=== PATIENT | male | born 1990 | race Caucasian/White ===

== ENCOUNTER 2019-08-16 16:43 | Emergency (ER) | payer OTHER, SELFPAY ==
--- NOTE | ~2019-08-16 | XR_ITS ---
EXAMINATION: XR wrist RT min 3V EXAM DATE: 08/16/2019 17:18 INDICATION: Initial encounter following injury, with pain of the right wrist. TECHNIQUE: Right wrist frontal, frontal with ulnar deviation, oblique and lateral projections obtain ed and reviewed. There is no prior study for comparison. FINDINGS: Right wrist scapholunate joint space is maintained. There are no acute fractures or disloca tions identified. There is no subcutaneous gas. The soft tissue is unremarkable. There are no rad iopaque foreign bodies. IMPRESSION: No acute osseous findings. Reviewed, dictated and finalized at location [facility] IMPRESSION: No acute osseous findings.
--- NOTE | 2019-08-16 16:55 | ED.UPPEXIN ---
HPI - Extremity Injury (Upper) General Chief Complaint: Extremity Injury, Upper Stated Complaint: wrist pain r hand Time Seen by Provider: 08/16/19 16:55 Source: patient and RN notes reviewed Mode of arrival: ambulatory Limitations: no limitations History of Present Illness HPI narrative: 28-year-old male says that he was walking in the y[place] at home tripped over a tire hyperflexing his right hand. [place] and heard a pop. Wanted to get it evaluated. 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 complaint: injury to: right and wrist Onset (ago): hour(s) (2) Other injuries: none Handedness: right Place: home Severity: moderate Relieving factors: none Exacerbating factors: movement of extremity Context: fall Associated symptoms: heard/felt popping sensation Related Data Home Medications Medication Instructions Recorded Confirmed No Home Medications 08/16/19 08/16/19 Allergies Allergy/AdvReac Type Severity Reaction Status Date / Time No Known Allergies Allergy Verified 08/16/19 17:10 Review of Systems Review of Systems: All systems reviewed & are unremarkable except as noted in HPI and below PMFSH Past Medical History Medical History (Updated 08/16/19 @ 17:27 by Fabio Santiago MD) No active medical problems Surgical History Surgical History (Updated 08/16/19 @ 17:03 by Fabio Santiago MD) No history of previous surgery Social History Social History (Updated 08/16/19 @ 17:04 by Fabio Santiago MD) Smoking status: Current every day smoker Tobacco type: cigarettes Alcohol intake: current Alcohol use details: Occasional Substance use: current Substance use type: marijuana Other substance usage details: occasional Exam Const: General: healthy appearing, no acute distress and alert Nutritional Appearance: well nourished Orientation/consciousness: patient oriented x3 HENMT: Head: normal to inspection Ears: external ears normal General nose exam: Normal external nose present Face and sinus: normal facial exam Mouth: Yes moist mucous membranes Eyes: Conjunctivae: conjunctivae normal Pupils: Equal, round and reactive pupils present EOM: EOMs intact bilaterally Neck: Neck: normal visual inspection Chest: Chest palpation & inspection: normal inspection of the chest Resp: Effort & Inspection: normal respiratory effort Auscultation: clear to auscultation bilaterally Cardio: Rate: regular rate Rhythm: regular rhythm GI: GI Palp: Yes Soft to palpation and No Tenderness to palpation present (GI) Auscultation: normal bowel sounds Back/Spine/Pelvis: Cervical Spine: cervical ROM normal Thoracic/Lumbar Spine: thoraco-lumbar ROM normal Skin: General skin exam: normal color Rashes: no rashes Neuro: General: patient oriented x3 and no focal motor deficits Speech: normal speech Gait exam (Neuro): Normal gait present Extrem: General: no clubbing, cyanosis or edema Right upper extremity: wrist tenderness of the distal radius, normal ROM and normal vascular exam; no swelling, ROM normal and no lacerations Psych: Appearance: grossly normal and well kempt Mental Status: mental status grossly normal Affect: normal affect Attitude: cooperative Thought content: Yes Normal thought content present Course Vital Signs Vital signs: Vital Signs Temperature 36.3 C L 08/16/19 16:57 Pulse Rate 109 H 08/16/19 16:57 Respiratory Rate 16 08/16/19 16:57 Blood Pressure 136/90 08/16/19 16:57 Pulse Oximetry 95 08/16/19 16:57 Temperature 36.3 C L 08/16/19 16:57 Pulse Rate 109 H 08/16/19 16:57 Respiratory Rate 16 08/16/19 16:57 Blood Pressure 136/90 08/16/19 16:57 Pulse Oximetry 95 08/16/19 16:57 Discharge Plan Discharge Clinical Impression: Sprain and strain of wrist Patient Disposition: Home, Self-Care Condition: Stable Instructions: Wrist Sprain (ED) Additional Instructions: Use Tylenol or Motrin as needed. Ice elevate. Follow-up w
[2019-08-16 16:57] VITALS: BP 136/90; PULSE 109; RESP 16; TEMP 36.3; O2SAT 95
== END 2019-08-16 17:37 | disposition home or self-care (01) ==
PROVIDERS: Emergency Provider Emergency Medicine; PCP Internal Medicine
DX: S63.501A Unspecified sprain of right wrist, initial encounter (principal); W22.8XXA Striking against or struck by other objects, initial encounter
CPT/HCPCS: 29125; 73110; 99282; 99283

== ENCOUNTER 2021-12-03 21:05 | Emergency (ER) | payer OTHER, SELFPAY ==
[2021-12-03 21:10] VITALS: BP 146/77; PULSE 95; RESP 18; TEMP 36.9; O2SAT 97
--- NOTE | 2021-12-03 21:23 | ED.DIZZY ---
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 MD elicited complaint: dizziness and lightheadedness Onset (ago): hour(s) Severity: mild Related Data Home Medications Medication Instructions Recorded Confirmed No Home Medications 08/16/19 12/03/21 Allergies Allergy/AdvReac Type Severity Reaction Status Date / Time No Known Allergies Allergy Verified 08/16/19 17:10 Review of Systems Review of Systems: All systems reviewed & are unremarkable except as noted in HPI and below PMFSH Past Medical History Medical History No active medical problems Surgical History Surgical History No history of previous surgery Social History Social History Smoking status: Current every day smoker Tobacco type: cigarettes Alcohol intake: current Alcohol use details: Occasional Substance use: current Substance use type: marijuana Other substance usage details: occasional Exam Const: General: healthy appearing and no acute distress HENMT: Head: normal to inspection Eyes: Conjunctivae: conjunctivae normal Pupils: Equal, round and reactive pupils present Direct Ophthalmoscopy: no photophobia Neck: Neck: normal visual inspection, no lymphadenopathy and no meningeal signs Chest: Chest palpation & inspection: normal inspection of the chest Resp: Effort & Inspection: normal respiratory effort Cardio: Rate: regular rate Rhythm: regular rhythm GI: Auscultation: normal bowel sounds : General: Yes bladder normal to palpation Skin: General skin exam: normal color Rashes: no rashes Wounds: no wounds Neuro: General: patient oriented x3, moves all extremities, no meningeal signs and no focal motor deficits Psych: Mental Status: mental status grossly normal Affect: normal affect Course Course Emergency Course: Patient declined any blood work or EKG, states that he is doing well and just wanted to be checked out otherwise doing well. Critical Care Time Critical Care Time Critical Care Time: No Discharge Plan Discharge Clinical Impression: Light-headedness Patient Disposition: Home, Self-Care Condition: Stable Instructions: Antibiotic Form, Lightheadedness (ED) Additional Instructions: advised to follow-up with primary care physician or if symptoms persist or worsen can come back to the emergency room. Prescriptions: No Action No Home Medications Follow-up/Referrals: Calin Rahman MD [Primary Care Provider] - Time of Disposition: 21:26
[2021-12-03 21:29] VITALS: BP 138/74; PULSE 85; RESP 18; O2SAT 98
== END 2021-12-03 21:30 | disposition home or self-care (01) ==
PROVIDERS: Emergency Provider Emergency Medicine; PCP Internal Medicine
DX: R42 Dizziness and giddiness (principal)
CPT/HCPCS: 99283

== ENCOUNTER 2022-05-22 09:14 | Emergency (ER) | payer OTHER, SELFPAY ==
[2022-05-22 09:17] VITALS: BP 137/97; PULSE 89; RESP 18; TEMP 36.6; O2SAT 98
[2022-05-22] MEDS: SODIUM CHLORIDE 0.9% IV 1,000 ML 999 ML IV CONT (09:40)
[2022-05-22 09:44] LABS: Hematocrit 48.3 % (40.0-54.0); Hemoglobin 16.2 g/dL (14.0-18.0); Mean Corpuscular HGB Conc 33.5 g/dL (32.0-36.0); Mean Corpuscular Hemoglobin 30.2 pg (27.0-31.0); Mean Corpuscular Volume 89.9 fL (78.0-102.0); Mean Platelet Volume 9.9 fl (8.7-11.0); Platelet Count Result 233 K/mm3 (150-420); Red Blood Count 5.37 M/mm3 (4.70-6.10); Red Cell Distribution Width 12.6 % (11.6-14.4); White Blood Count 6.7 K/mm3 (4.8-10.8)
--- NOTE | 2022-05-22 09:56 | ED.GENADULT ---
HPI - General Adult General Chief complaint: Upper Respiratory Infection Stated complaint: vomiting, nausea, clammy Time Seen by Provider: 05/22/22 09:21 Source: patient Mode of arrival: ambulatory Limitations: no limitations History of Present Illness HPI narrative: this is a 31-year-old gentleman with no significant past medical history presents with a 2 day history of nausea and episode of vomiting with diarrhea currently no crampy abdominal pain patient states that he has felt clammy with chills with no fevers no shortness of breath no chest pain no cough or congestion no nasal discharge. Onset (ago): day(s) Severity: mild Related Data Allergies Allergy/AdvReac Type Severity Reaction Status Date / Time No Known Allergies Allergy Verified 05/22/22 09:44 Review of Systems Review of Systems: All systems reviewed & are unremarkable except as noted in HPI and below PMFSH Past Medical History Medical History No active medical problems Surgical History Surgical History No history of previous surgery Social History Social History Smoking status: Current every day smoker Tobacco type: cigarettes Alcohol intake: current Alcohol use details: Occasional Substance use: current Substance use type: marijuana Other substance usage details: occasional Exam Const: General: healthy appearing and no acute distress Nutritional Appearance: well nourished Limitations: no limitations HENMT: Head: normal to inspection Ears: external ears normal Face/Nose/Sinus: Normal external nose present Eyes: Conjunctivae: conjunctivae normal Pupils: Equal, round and reactive pupils present EOM: EOMs intact bilaterally Direct Ophthalmoscopy: no photophobia Neck: Neck: normal visual inspection Chest: Chest palpation & inspection: normal inspection of the chest Resp: Effort & Inspection: normal respiratory effort Auscultation: clear to auscultation bilaterally Cardio: Rate: regular rate Rhythm: regular rhythm GI: GI Palp: Yes Soft to palpation Auscultation: normal bowel sounds : General: Yes bladder normal to palpation Back/Spine/Pelvis: Back: no CVA tenderness Skin: General skin exam: normal color Rashes: no rashes Wounds: no wounds Neuro: General: patient oriented x3, moves all extremities, no meningeal signs and no focal motor deficits Extrem: General: normal to inspection and no clubbing, cyanosis or edema Psych: Mental Status: mental status grossly normal Affect: normal affect Course Course Emergency Course: Patient currently denies any nausea or vomiting, and received IV fluids and labs and viral screens reviewed with patient Vital Signs Vital signs: Vital Signs Temperature 36.6 C 05/22/22 09:17 Pulse Rate 89 05/22/22 09:17 Respiratory Rate 18 05/22/22 09:17 Blood Pressure 137/97 H 05/22/22 09:17 Pulse Oximetry 98 05/22/22 09:17 Oxygen Delivery Room Air 05/22/22 09:17 Temperature 36.6 C 05/22/22 09:17 Pulse Rate 89 05/22/22 09:17 Respiratory Rate 18 05/22/22 09:17 Blood Pressure 137/97 H 05/22/22 09:17 Pulse Oximetry 98 05/22/22 09:17 Oxygen Delivery Room Air 05/22/22 09:17 Medical Decision Making Vital Signs Vital Signs: Vital Signs Temperature 36.6 C 05/22/22 09:17 Pulse Rate 89 05/22/22 09:17 Respiratory Rate 18 05/22/22 09:17 Blood Pressure 137/97 H 05/22/22 09:17 Pulse Oximetry 98 05/22/22 09:17 Oxygen Delivery Room Air 05/22/22 09:17 Temperature 36.6 C 05/22/22 09:17 Pulse Rate 89 05/22/22 09:17 Respiratory Rate 18 05/22/22 09:17 Blood Pressure 137/97 H 05/22/22 09:17 Pulse Oximetry 98 05/22/22 09:17 Oxygen Delivery Room Air 05/22/22 09:17 Lab Data 05/22/22 09:40 05/22/22 09:40 Labs:
[2022-05-22 09:58] LABS: Alanine Aminotransferase 28 U/L (16-63); Albumin Level 4.3 g/dL (3.4-5.0); Alkaline Phosphatase 65 U/L (46-116); Anion Gap 15 mmol/L (8-16); Aspartate Amino Transferase 19 U/L (15-37); Bilirubin,Total 0.3 mg/dL (0.00-1.00); Blood Urea Nitrogen 30 mg/dL (7-18); Calcium 9.1 mg/dL (8.5-10.1); Carbon Dioxide 24 mmol/L (21-32); Chloride 98 mmol/L (98-108); Estimated CRCL calculation 104 ml/min; Estimated Glomerular Filt Rate > 60; Glucose 90 mg/dL (70-99); Osmolality Calculated 290 mOsm/kg (285-295); Potassium 3.3 mmol/L (3.5-5.1); Sodium 137 mmol/L (136-145); Total Protein 8.8 g/dL (6.4-8.2)
[2022-05-22 10:04] LABS: Band Neutrophils Percent 0 % (0-6); Basophils Percent Manual 0 % (0-1); Eosinophils Percent Manual 0 % (1-6); Lymphocytes Absolute Manual 1.27 K/mm3 (1.1-4.5); Lymphocytes Percent Manual 19 % (18-44); Monocytes Percent Manual 21 % (3-9); Neutrophils Absolute Manual 4.02 K/mm3 (1.3-6.7); Neutrophils Percent Manual 60 % (46-73); Platelet Estimate Adequate (Adequate); Total Cells Counted 100
[2022-05-22 10:09] LABS: Influenza A QL RT-PCR Positive (Negative); Influenza B QL RT-PCR Negative (Negative); SARS-CoV-2 RNA PCR Negative (Negative)
[2022-05-22 10:11] LABS: RSV RNA, RT-PCR Negative (Negative)
[2022-05-22 10:40] VITALS: BP 137/82; PULSE 80; RESP 16; TEMP 36.4; O2SAT 97
== END 2022-05-22 10:43 | disposition home or self-care (01) ==
PROVIDERS: Emergency Provider Emergency Medicine; PCP Internal Medicine
DX: K52.9 Noninfective gastroenteritis and colitis, unspecified (principal); Z20.822 Contact with and (suspected) exposure to COVID-19
CPT/HCPCS: 80053; 85025; 87637; 96360; 99283; J7030

== ENCOUNTER 2023-12-27 09:21 | Emergency (ER) | payer SELFPAY ==
[2023-12-27 09:21] VITALS: BP 154/73; PULSE 91; RESP 18; TEMP 36.3; O2SAT 94
[2023-12-27 09:29] VITALS: O2SAT 100
[2023-12-27 10:08] LABS: Influenza A QL RT-PCR Negative (Negative); Influenza B QL RT-PCR Negative (Negative); RSV RNA, RT-PCR Negative (Negative); SARS-CoV-2 RNA PCR Negative (Negative)
--- NOTE | 2023-12-27 10:28 | ED.URI ---
HPI - URI/Sore Throat General Chief Complaint: Upper Respiratory Infection Stated Complaint: viral symptoms Time Seen by Provider: 12/27/23 09:51 Source: patient Mode of arrival: ambulatory History of Present Illness HPI Narrative: patient is a 33-year-old male with a significant past medical history presents today with URI symptoms. Patient had a coughing congestion, also has diarrhea nausea he has had this for last 3 days. He denies any sick contacts or fevers. He has not taken home COVID test together. he states he also has some minor abdominal pain. He denies any sick contacts. MD elicited complaint: cough, rhinorrhea and nasal congestion Onset (ago): day(s) Consistency: constant Severity: mild Description of mucous: clear Able to tolerate fluids by mouth: Yes Associated symptoms: diaphoresis, headache and abdominal pain Treatments prior to arrival: none Related Data Allergies Allergy/AdvReac Type Severity Reaction Status Date / Time No Known Allergies Allergy Verified 12/27/23 09:31 Review of Systems Review of Systems: All systems reviewed & are unremarkable except as noted in HPI and below Constitutional: Constitutional: Reports as per HPI Eyes: Eyes: Reports as per HPI ENT: Reports as per HPI, Reports nasal congestion and Reports sore throat Cardiovascular: Cardiovascular: Reports no additional cardiovascular complaints Respiratory: Respiratory: Reports as per HPI Gastrointestinal: Gastrointestinal: Reports as per HPI and Reports diarrhea Genitourinary: Genitourinary: Reports no additional male genitourinary complaints Musculoskeletal: Musculoskeletal: Reports no additional musculoskeletal complaints Integumentary/Breasts: Skin/Breast: Reports system reviewed and no additional complaints, except as docu Neurologic: Reports system reviewed and no additional complaints, except as documented Psychiatric: Psychiatric: Reports no additional psychiatric complaints Endocrine: Endocrine: Reports no additional endocrine complaints Hematologic/Lymphatic: Hematologic/Lymphatic: Reports no additional hematologic/lymphatic complaints Allergic/Immunologic: Allergic/Immunologic: Reports no additional allergic/immunologic complaints PMFSH Past Medical History Medical History No active medical problems Surgical History Surgical History No history of previous surgery Social History Social History Smoking status: Current every day smoker Tobacco type: cigarettes Alcohol intake: current Alcohol use details: Occasional Substance use: current Substance use type: marijuana Other substance usage details: occasional Course Vital Signs Vital signs: Vital Signs Temperature 97.4 F L 12/27/23 09:21 Pulse Rate 91 12/27/23 09:21 Respiratory Rate 18 12/27/23 09:21 Blood Pressure 154/73 H 12/27/23 09:21 Pulse Oximetry 94 12/27/23 09:21 Oxygen Delivery Room Air 12/27/23 09:21 Temperature 97.4 F L 12/27/23 09:21 Pulse Rate 91 12/27/23 09:21 Respiratory Rate 18 12/27/23 09:21 Blood Pressure 154/73 H 12/27/23 09:21 Pulse Oximetry 100 12/27/23 09:29 Oxygen Delivery Room Air 12/27/23 09:29 MDM - URI/Sore Throat MDM Narrative Medical decision making narrative: Patient most likely has an upper respiratory infection and symptoms gastroenteritis as well. Will do COVID and flu swabs on and base treatment on that. It does not seem to be too severe however he is sitting comfortably. Differential Diagnosis Differential diagnosis: Likely upper respiratory infection Medical Records Attestation: I reviewed the patient's medical records. Lab Data Attestation: I reviewed the patient's lab results. Labs: Lab Results 12/27/23 Range/Units 09:24 Influenza A (RT-PCR) Negative (Negative)
[2023-12-27 10:46] VITALS: BP 128/89; PULSE 83; RESP 17; TEMP 36.4; O2SAT 97
== END 2023-12-27 10:46 | disposition home or self-care (01) ==
PROVIDERS: Emergency Provider Family Medicine; PCP Internal Medicine
DX: J06.9 Acute upper respiratory infection, unspecified (principal); K52.9 Noninfective gastroenteritis and colitis, unspecified; F17.210 Nicotine dependence, cigarettes, uncomplicated; Z20.822 Contact with and (suspected) exposure to COVID-19
CPT/HCPCS: 87637; 99283

== ENCOUNTER 2024-04-09 16:42 | Emergency (ER) | payer SELFPAY ==
[2024-04-09 16:42] VITALS: BP 164/106; PULSE 76; RESP 18; TEMP 36.9; O2SAT 99
--- NOTE | 2024-04-09 16:53 | ED.DENTAL ---
HPI - Dental/Oral General Chief complaint: Dental/Oral Stated complaint: dental pain Time Seen by Provider: 04/09/24 16:51 Source: patient History of Present Illness HPI Narrative: 33 YEARS OLD WHITE MALE CAME TO THE ED COMPLAINING OF RIGHT-SIDED LOWER DENTAL PAIN FOR THE LAST 4 DAYS. LAST TIME WAS SEEN BY A DENTIST YEARS AGO. HE DENIES ANY FEVER, CHILLS, HEADACHE, DIFFICULTY SWALLOWING OR BREATHING Related Data Allergies Allergy/AdvReac Type Severity Reaction Status Date / Time No Known Allergies Allergy Verified 12/27/23 09:31 Review of Systems Review of Systems: All systems reviewed & are unremarkable except as noted in HPI and below PMFSH Past Medical History Medical History No active medical problems Surgical History Surgical History No history of previous surgery Social History Social History Smoking status: Current every day smoker Tobacco type: cigarettes Alcohol intake: current Alcohol use details: Occasional Substance use: current Substance use type: marijuana Other substance usage details: occasional Exam Narrative: GENERAL APPEARANCE: WELL-DEVELOPED, WELL-NOURISHED SKIN: NORMAL COLOR HEAD: NORMOCEPHALIC, NONTRAUMATIC EYES: CLEAR CONJUNCTIVA ENT: OROPHARYNX NORMAL, EARS NORMAL, NOSE NORMAL, EXTENSIVE DENTAL DECAY MAINLY AT THE RIGHT LOWER TEETH NECK: SUPPLE, NONTENDER NEUROLOGIC: ALERT AND ORIENTED ?3, 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 TESTED, NO GROSS MOTOR DEFICIT Course Vital Signs Vital signs: Vital Signs Temperature 36.9 C 04/09/24 16:42 Pulse Rate 76 04/09/24 16:42 Respiratory Rate 18 04/09/24 16:42 Blood Pressure 164/106 H 04/09/24 16:42 Pulse Oximetry 99 04/09/24 16:42 Oxygen Delivery Room Air 04/09/24 16:42 Temperature 36.9 C 04/09/24 16:42 Pulse Rate 76 04/09/24 16:42 Respiratory Rate 18 04/09/24 16:42 Blood Pressure 164/106 H 04/09/24 16:42 Pulse Oximetry 99 04/09/24 16:42 Oxygen Delivery Room Air 04/09/24 16:42 MDM - Dental/Oral Differential Diagnosis Differential diagnosis: Likely dental caries, toothache and fracture of tooth Discharge Plan Discharge Clinical Impression: Dental caries Patient Disposition: Home, Self-Care Condition: Stable Instructions: Antibiotic Form, Toothache (ED) Additional Instructions: RETURN IF SYMPTOMS ARE WORSENING , CALL YOUR FAMILY PHYSICIAN FOR APPOINTMENT, TAKE TYLENOL NEEDED FOR ACHES AND PAIN, CONTINUE HOME MEDICATIONS. Prescriptions: New penicillin V potassium 500 mg tablet 500 mg PO Q6H Qty: 40 0RF ibuprofen [IBU] 800 mg tablet 800 mg PO TID Qty: 20 0RF Follow-up/Referrals: Calin Rahman MD [Primary Care Provider] - Stand Alone Forms: Work/School Release IP
== END 2024-04-09 17:10 | disposition home or self-care (01) ==
LOC: CHSED 17:05
PROVIDERS: Emergency Provider Emergency Medicine; PCP Internal Medicine
DX: K02.9 Dental caries, unspecified (principal); F17.210 Nicotine dependence, cigarettes, uncomplicated
CPT/HCPCS: 99283

== ENCOUNTER 2024-04-12 04:52 | Emergency (ER) | payer OTHER, SELFPAY ==
[2024-04-12 04:54] VITALS: BP 143/96; PULSE 89; RESP 18; TEMP 36.4; O2SAT 97
--- NOTE | 2024-04-12 05:04 | ED.EYEPROB ---
HPI - Eye Problem General Chief complaint: Eye Problems Stated complaint: allergic reaction Time Seen by Provider: 04/12/24 05:04 Source: patient Mode of arrival: ambulatory Limitations: no limitations History of Present Illness HPI Narrative: 33-year-old male smoker presented to the ED on 04/01/2024 for right lower dental pain and was prescribed amoxicillin. He presents to the ED with a 2 day history of -- left forehead vesicular rash which is not painful. the rash extends over the nose and the forehead -- erythema of the left eye. no eye pain. No photophobia. no vision changes. chief complaint: eye redness Onset (ago): day(s) ( One day) Onset description: sudden Duration: constant Location: left eye Related Data Allergies Allergy/AdvReac Type Severity Reaction Status Date / Time No Known Allergies Allergy Verified 12/27/23 09:31 Review of Systems Review of Systems: All systems reviewed & are unremarkable except as noted in HPI and below Eyes: Eyes: Reports as per HPI and Reports no additional eye complaints Comments: No eye pain/ vision changes/tearing/ photophobia PMFSH Past Medical History Medical History No active medical problems Surgical History Surgical History No history of previous surgery Social History Social History Smoking status: Current every day smoker Tobacco type: cigarettes Alcohol intake: current Alcohol use details: Occasional Substance use: current Substance use type: marijuana Other substance usage details: occasional Exam Const: General: no acute distress Orientation/consciousness: patient oriented x3 Limitations: no limitations HENMT: Head: normal to inspection Ears: external ears normal Face/Nose/Sinus: Normal external nose present Face and sinus: normal facial exam Mouth: Yes Normal oral and palatal mucosa present Throat: posterior oropharynx normal Eyes: Conjunctivae: conjunctival abnormality ( left conjunctival erythema which is worse at the limbus of the cornea.) left Pupils: Equal, round and reactive pupils present EOM: EOMs intact bilaterally Direct Ophthalmoscopy: no photophobia Other: Fluorescein staining of the eye revealed punctate staining at 12:00 p.m. position without any corneal erosions. Anterior chamber is clear. Neck: Neck: normal visual inspection, no lymphadenopathy and no meningeal signs Chest: Chest palpation & inspection: normal inspection of the chest Resp: Effort & Inspection: normal respiratory effort Auscultation: clear to auscultation bilaterally Cardio: Rate: regular rate Rhythm: regular rhythm GI: Other: Soft. Bowel sounds are present. No tenderness /rigidity / rebound. : General: Yes no CVA tenderness Skin: Other: Vesicular rash in the distribution the left supraorbital nerve /nasal ciliary branch. No crusting noted. Neuro: General: patient oriented x3, moves all extremities, no meningeal signs, no focal motor deficits and CN's II-XI intact bilaterally Cranial nerves: Yes Nystagmus not present Speech: normal speech Gait exam (Neuro): Normal gait present Extrem: General: normal to inspection and no clubbing, cyanosis or edema Psych: Mental Status: mental status grossly normal Affect: normal affect Attitude: cooperative Course Course Emergency Course: Herpes zoster ophthalmicus with keratitis. no vision involvement will start the patient on oral acyclovir. Discuss the risk of blindness secondary to acute retinal necrosis, iritis and Iridocyclitis. advised the importance of following up with an artificial glass eye maker immediately. Currently the patient does not have any vision involvement, photophobia or eye pain or neuralgic pain over the forehea Vital Signs Vital signs: Vital Signs Temperature 36.4 C 04/12/24 04:54 Pulse Rate 89 04/12/24 04:54 Respiratory Rate 18 04/12/24 04:54 Blood Pressure 143/96 H 04/12/24 04:54 Pulse Oximetry 97 04/12/24 04:54 Oxygen Delivery Room Air 04/12/24 04:54 Temperature 36.4 C 04/12/24 04:54 Pulse Rate 89 04/12/24 04:54 Respiratory Rate 18 04/12/24 04:54 Blood Pressure 143/96 H 04/12/24 04:54 Pulse Oximetry 97 04/12/24 04:54 Oxygen Delivery Room Air 04/12/24 04:54 MDM - Eye Problem MDM Narrative Medical decision making narrative: Herpes zoster ophthalmicus Differential Diagnosis Differential diagnosis: Likely corneal abrasion and conjunctivitis Discharge Plan Discharge Clinical Impression: Herpes zoster ophthalmicus of left eye, Keratitis Patient Disposition: Home, Self-Care Condition: Stable Instructions: Antibiotic Form, Shingles (ED), Keratitis (ED) Additional Instructions: follow-up with artificial glass eye maker immediately Patient Language: Telugu Prescriptions: New acyclovir 400 mg tablet 400 mg PO . 5 times a day Qty: 35 0RF No Action penicillin V potassium 500 mg tablet 500 mg PO Q6H Qty: 40 0RF ibuprofen 800 mg tablet 800 mg PO TID PRN (Reason: pain) Qty: 20 0RF Follow-up/Referrals: Calin Rahman MD [Primary Care Provider] - Time of Disposition: 05:49
[2024-04-12] MEDS: FLUORESCEIN SOD 1 MG/STRIP EACH EYE (05:14)
[2024-04-12] MEDS: TETRACAINE HCL 0.5% OPHTH SOLN 4 ML BTL 1 DROP EACH EYE (05:14)
[2024-04-12] MEDS: DACRIOSE EYE IRRIGATION 118 ML BOTTLE EACH EYE (05:31)
[2024-04-12] MEDS: ACYCLOVIR 200 MG CAPSULE 400 MG PO (05:42)
[2024-04-12 06:00] VITALS: BP 134/88; PULSE 88; RESP 18; O2SAT 96
== END 2024-04-12 06:00 | disposition home or self-care (01) ==
PROVIDERS: Emergency Provider Internal Medicine Critical Care Medicine; PCP Internal Medicine
DX: B02.30 Zoster ocular disease, unspecified (principal); H16.9 Unspecified keratitis; F17.210 Nicotine dependence, cigarettes, uncomplicated
CPT/HCPCS: 99283; A9270

== ENCOUNTER 2025-05-20 10:59 | Emergency (ER) | payer SELFPAY ==
[2025-05-20 11:04] VITALS: BP 144/83; PULSE 67; RESP 18; TEMP 36.3; O2SAT 100
--- NOTE | 2025-05-20 11:11 | ED_ITS ---
HPI - Dental/Oral General Chief complaint: Dental/Oral Stated complaint: tooth pain Time Seen by Provider: 05/20/25 11:03 Source: patient Mode of arrival: ambulatory Limitations: no limitations History of Present Illness HPI Narrative: Patient is a 34-year-old male with left lower jaw dental pain for the past few days. He has a dentist appointment planned for tomorrow. He has severe decay in the oral cavity. MD Complaint: tooth pain Location: Tooth # (Seventeen and 18) Onset (ago): day(s) (3) Duration: constant Severity: moderate Severity scale (1-10): 5 Relieving factors: nothing Exacerbating factors: chewing, cold, heat and drinking fluids Context: history of dental caries and poor dental care Associated symptoms: other (None) Treatment prior to arrival: none Related Data Allergies Allergy/AdvReac Type Severity Reaction Status Date / Time No Known Allergies Allergy Verified 05/20/25 11:03 Review of Systems Review of Systems: All systems reviewed & are unremarkable except as noted in HPI and below Constitutional: Constitutional: Reports no additional constitutional complaints Eyes: Eyes: Reports no additional eye complaints ENT: Reports system reviewed and no additional complaints, except as documented Cardiovascular: Cardiovascular: Reports no additional cardiovascular complaints Respiratory: Respiratory: Reports no additional respiratory complaints Gastrointestinal: Gastrointestinal: Reports no additional gastrointestinal complaints Genitourinary: Genitourinary: Reports no additional male genitourinary complaints Musculoskeletal: Musculoskeletal: Reports no additional musculoskeletal complaints Integumentary/Breasts: Skin/Breast: Reports system reviewed and no additional complaints, except as docu Neurologic: Reports system reviewed and no additional complaints, except as documented Psychiatric: Psychiatric: Reports no additional psychiatric complaints Endocrine: Endocrine: Reports no additional endocrine complaints Hematologic/Lymphatic: Hematologic/Lymphatic: Reports no additional hematologic/lymphatic complaints Allergic/Immunologic: Allergic/Immunologic: Reports no additional allergic/immunologic complaints PMFSH Past Medical History Medical History No active medical problems Surgical History Surgical History No history of previous surgery Social History Social History Smoking status: Current every day smoker Tobacco type: cigarettes Alcohol intake: current Alcohol use details: Occasional Substance use: current Substance use type: marijuana Other substance usage details: occasional Exam Const: General: healthy appearing Nutritional Appearance: well nourished Orientation/consciousness: patient oriented x3 HENMT: Head: normal to inspection Ears: external ears normal Face/Nose/Sinus: Normal external nose present Eyes: Conjunctivae: conjunctivae normal Pupils: Equal, round and reactive pupils present EOM: EOMs intact bilaterally Other: Left lower jaw has number tooth of 17 and 18 with severe decay but no abscess formation Neck: Neck: normal visual inspection Chest: Chest palpation & inspection: normal inspection of the chest Resp: Effort & Inspection: normal respiratory effort and not labored Auscultation: clear to auscultation bilaterally and no crackles Cardio: Rate: regular rate Rhythm: regular rhythm Heart sounds: no murmurs GI: Inspection: non-distended GI Palp: Yes Soft to palpation and No Tenderness to palpation present (GI) Auscultation: normal bowel sounds : General: Yes bladder normal to palpation Back/Spine/Pelvis: Back: no CVA tenderness Skin: General skin exam: normal color Rashes: no rashes Wounds: no wounds Neuro: General: patient oriented x3, moves all extremities and no meningeal signs Extrem: General: normal to inspection, no clubbing, cyanosis or edema and no pedal edema Psych: Mental Status: mental status grossly normal Affect: normal affect Attitude: cooperative Course Vital Signs Vital signs: Vital Signs Temperature 36.3 C L 05/20/25 11:04 Pulse Rate 67 05/20/25 11:04 Respiratory Rate 18 05/20/25 11:04 Blood Pressure 144/83 H 05/20/25 11:04 Pulse Oximetry 100 05/20/25 11:04 Oxygen Delivery Room Air 05/20/25 11:04 Temperature 36.3 C L 05/20/25 11:04 Pulse Rate 67 05/20/25 11:04 Respiratory Rate 18 05/20/25 11:04 Blood Pressure 144/83 H 05/20/25 11:04 Pulse Oximetry 100 05/20/25 11:04 Oxygen Delivery Room Air 05/20/25 11:04 [facility] [place] MDM Narrative Medical decision making narrative: Patient is a 34-year-old male with left lower jaw pain of the teeth and dental appointment tomorrow. Augmentin 875 and Ultram as prescription. Patient declined Toradol. Dentist tomorrow. Differential Diagnosis Differential Diagnosis: Dentalgia, abscess, mandible pain Discharge Plan Discharge Clinical Impression: Mandible pain Patient Disposition: Home Condition: Stable Instructions: Antibiotic Form, Toothache (ED) Additional Instructions: Please follow-up with the dentist as planned tomorrow. Patient Language: Amharic Prescriptions: New amoxicillin-pot clavulanate 875-125 mg tablet 1 tablet PO BID 10 Days Qty: 20 0RF tramadol 50 mg tablet 50 mg PO Q8H PRN (Reason: pain) Qty: 20 0RF Rx Instructions: 1-2 tabs per dose Follow-up/Referrals: Calin Rahman MD [Primary Care Provider, Internal Medicine] Time of Disposition: 11:41
== END 2025-05-20 11:47 | disposition home or self-care (01) ==
PROVIDERS: Emergency Provider Emergency Medicine; PCP Internal Medicine
DX: R68.84 Jaw pain (principal); F17.210 Nicotine dependence, cigarettes, uncomplicated
CPT/HCPCS: 99283